=== PATIENT | male | born 1990 | race African-American/Black ===

== ENCOUNTER 2023-01-28 11:28 | Inpatient (IN) | payer MEDICAID ==
[~2023-01-28] VITALS: Ht 185.4 cm; Wt 99.3 kg
[2023-01-28 15:32] LABS: Basophils # (auto) 0 10 ^3/uL (0-0.2); Basophils % (auto) 0.5 % (0.0-2.0); Eosinophils # (auto) 0.2 10 ^3/uL (0-0.8); Eosinophils % (auto) 2.8 % (0.0-7.0); Hematocrit 46.2 % (41.0-53.0); Hemoglobin 15.2 g/dL (13.5-17.5); Lymphocytes # (auto) 1.9 10 ^3/uL (0.4-5.4); Lymphocytes % (auto) 30.9 % (10.0-50.0); Mean Corpuscular Hemoglobin 29.7 pg (28.0-32.0); Mean Corpuscular Hgb Conc. 32.9 g/dL (32.0-36.0); Mean Corpuscular Volume 90.3 fL (80.0-100.0); Monocytes # (auto) 0.4 10 ^3/uL (0-1.3); Monocytes % (auto) 6.2 % (0.0-12.0); Neutrophils # (auto) 3.6 10 ^3/uL (1.6-8.6); Neutrophils % (auto) 59.6 % (37.0-80.0); Nucleated Red Blood Cells % 0.3 %; Red Blood Cells 5.12 10^6/uL (4.5-5.90); Red Cell Distribution Width 13.6 % (11.8-14.3); White Blood Cell 6.1 10^3/uL (4.4-10.8)
[2023-01-28 15:42] LABS: INR 1.02 (0.9-1.15); Partial Thromboplastin Time 29.1 sec (24.6-33.4)
[2023-01-28 15:48] LABS: Albumin 3.7 g/dL (3.4-5.0); Calcium 9.8 mg/dL (8.5-10.1); Potassium 4.1 mmol/L (3.5-5.1)
[2023-01-28 15:53] LABS: Bilirubin, Total 0.3 mg/dL (0.2-1.0); Total Protein 7.4 g/dL (6.4-8.2)
[2023-01-28] MEDS ORDERED: HYDROcodone-ACET 5/325MG TAB PO PRN (16:45)
[2023-01-28] MEDS ORDERED: ACETAMINOPHEN 325 MG TAB PO PRN (16:45)
[2023-01-28] MEDS ORDERED: ONDANSETRON HCL 4 MG/2 ML VIAL IV PRN (16:45)
[2023-01-28] MEDS ORDERED: TRAZ100T3 PO (16:47)
[2023-01-28] MEDS ORDERED: METH-867 PO (16:47)
[2023-01-28] MEDS ORDERED: QUET1TAB11 PO (16:49)
[2023-01-28] MEDS: SODIUM CHLORIDE 0.9% 1,000 ML IV SCH (20:42)
[2023-01-28] MEDS: METHYLNALTREXONE BROMIDE PO SCH (22:00)
[2023-01-28] MEDS: traZODone HCL 50 MG TAB PO SCH (22:27)
[2023-01-28] MEDS: QUEtiapine FUMARATE 25 MG TAB PO SCH (22:27)
[2023-01-29 07:01] LABS: Potassium 3.9 mmol/L (3.5-5.1)
[2023-01-29 07:09] LABS: Albumin 3.2 g/dL (3.4-5.0); BUN/Creatinine Ratio 14.5 (10.0-20.0); Bilirubin, Total 0.4 mg/dL (0.2-1.0); Calcium 9.6 mg/dL (8.5-10.1); Total Protein 6.6 g/dL (6.4-8.2)
[2023-01-29 07:17] LABS: Basophils # (auto) 0 10 ^3/uL (0-0.2); Basophils % (auto) 0.3 % (0.0-2.0); Eosinophils # (auto) 0.2 10 ^3/uL (0-0.8); Eosinophils % (auto) 3.2 % (0.0-7.0); Hematocrit 42.1 % (41.0-53.0); Hemoglobin 14.1 g/dL (13.5-17.5); Lymphocytes # (auto) 1.9 10 ^3/uL (0.4-5.4); Lymphocytes % (auto) 35.1 % (10.0-50.0); Mean Corpuscular Hemoglobin 30.5 pg (28.0-32.0); Mean Corpuscular Hgb Conc. 33.6 g/dL (32.0-36.0); Mean Corpuscular Volume 90.7 fL (80.0-100.0); Monocytes # (auto) 0.5 10 ^3/uL (0-1.3); Monocytes % (auto) 8.4 % (0.0-12.0); Neutrophils # (auto) 2.9 10 ^3/uL (1.6-8.6); Nucleated Red Blood Cells % 0.2 %; Red Blood Cells 4.64 10^6/uL (4.5-5.90); Red Cell Distribution Width 13.2 % (11.8-14.3); White Blood Cell 5.5 10^3/uL (4.4-10.8)
[2023-01-29] MEDS: SODIUM CHLORIDE 0.9% 1,000 ML IV SCH (09:25)
[2023-01-29] MEDS: QUEtiapine FUMARATE 25 MG TAB PO SCH (10:00)
[2023-01-29] MEDS: METHYLNALTREXONE BROMIDE PO SCH ×3 (10:00→23:04)
[2023-01-29] MEDS: PANTOPRAZOLE 40 MG/10 ML VIAL INJ IV SCH (11:30)
[2023-01-29 22:00] VITALS: BP 107/75
[2023-01-29] MEDS: QUEtiapine FUMARATE 100 MG TAB PO ONE ×2 (22:52→23:04)
[2023-01-29] MEDS: traZODone HCL 50 MG TAB PO SCH (23:04)
[2023-01-29 23:31] VITALS: BP 107/75
[2023-01-30] MEDS: SODIUM CHLORIDE 0.9% 1,000 ML IV SCH ×2 (02:05→18:49)
[2023-01-30 05:00] VITALS: BP 105/69
[2023-01-30] MEDS: METHYLNALTREXONE BROMIDE PO SCH ×3 (05:05→21:03)
[2023-01-30 09:00] VITALS: BP 102/59
[2023-01-30] MEDS ORDERED: ceFAZolin 1GM/50ML 50 ML IV ONE ×2 (09:30→14:51)
[2023-01-30] MEDS: PANTOPRAZOLE 40 MG/10 ML VIAL INJ IV SCH ×2 (09:52→21:03)
[2023-01-30 13:00] VITALS: BP 117/77
[2023-01-30] MEDS ORDERED: PROPOFOL 10 MG/ML 20 ML IV ONE (14:36)
[2023-01-30] MEDS ORDERED: METOCLOPRAMIDE HCL 5MG/ml INJ 2ml VIAL ONE (14:50)
[2023-01-30 17:00] VITALS: BP 109/79
[2023-01-30] MEDS: traZODone HCL 50 MG TAB PO SCH (21:02)
[2023-01-30 22:00] VITALS: BP 117/79
[2023-01-30] MEDS ORDERED: QUEtiapine FUMARATE 100 MG TAB PO SCH (22:00)
[2023-01-31 05:00] VITALS: BP 103/67
[2023-01-31] MEDS: METHYLNALTREXONE BROMIDE PO SCH ×2 (06:00→14:00)
[2023-01-31] MEDS: ENSURE CLEAR Apple 8oz Carton PO SCH ×2 (06:00→12:35)
[2023-01-31 08:00] VITALS: BP 104/79
[2023-01-31 09:00] VITALS: BP 104/79
[2023-01-31] MEDS ORDERED: PANT40T PO (09:53)
[2023-01-31] MEDS: PANTOPRAZOLE 40 MG/10 ML VIAL INJ IV SCH (10:00)
[2023-01-31] MEDS: SODIUM CHLORIDE 0.9% 1,000 ML IV SCH (11:25)
[2023-01-31 15:08] VITALS: BP 121/86
== END 2023-01-31 16:35 | disposition home health service (06) | DRG 252 ==
LOC: ER 11:28 → OVERFLOW 16:47 → EAST 01-29 21:45
PROVIDERS: ADMIT Nurse Practitioner Family; ATTEND Family Medicine
PROC: 0DH63UZ Insertion of Feeding Device into Stomach, Percutaneous Approach (ICD-10-PCS; principal; 2023-01-30 14:38)
DX: K94.23 Gastrostomy malfunction (principal); G81.94 Hemiplegia, unspecified affecting left nondominant side; K22.10 Ulcer of esophagus without bleeding; R17 Unspecified jaundice; R13.10 Dysphagia, unspecified; F32.A Depression, unspecified; F41.9 Anxiety disorder, unspecified; G89.4 Chronic pain syndrome; I10 Essential (primary) hypertension; J45.909 Unspecified asthma, uncomplicated; K59.00 Constipation, unspecified; N20.0 Calculus of kidney; K29.90 Gastroduodenitis, unspecified, without bleeding; R25.2 Cramp and spasm; K44.9 Diaphragmatic hernia without obstruction or gangrene; F09 Unspecified mental disorder due to known physiological condition; Y83.8 Other surgical procedures as the cause of abnormal reaction of the patient, or of later complication, without mention of misadventure at the time of the procedure; Y82.8 Other medical devices associated with adverse incidents; F17.210 Nicotine dependence, cigarettes, uncomplicated; R32 Unspecified urinary incontinence; V29.99XA Rider (driver) (passenger) of other motorcycle injured in unspecified traffic accident, initial encounter; Z74.01 Bed confinement status; Z87.820 Personal history of traumatic brain injury
CPT/HCPCS: 36415; 70450; 74176; 80053; 83690; 85025; 85610; 85730; 86850; 86900; 86901; C9113; G0378; J0690; J2704